=== PATIENT | male | born 1945 | race Caucasian/White ===

== ENCOUNTER 2019-10-25 19:51 | Inpatient (IN) ==
[2019-10-25] MEDS ORDERED: Ondansetron 4 MG/2 ML VIAL IVP ONE (20:10)
[2019-10-25] MEDS ORDERED: *HR* HYDROmorphone (PF) 1 MG/ML SYRINGE IVP ONE (20:10)
[2019-10-25 21:10] LABS: Basophils # 0.1 K/mcL (0.0-0.2); Basophils % 0.5 %; Eosinophils # 0.2 K/mcL (0.0-0.6); Eosinophils % 2.3 %; Hematocrit 31.5 % (37.5-50.1); Hemoglobin 10.7 g/dL (12.9-16.9); Immature Granulocytes % 0.5 % (0-4); Lymphocytes # 0.8 K/mcL (0.6-4.6); Lymphocytes % 8.1 %; Mean Corpuscular Hemoglobin 31.1 pg (28.0-33.3); Mean Corpuscular Volume 91.6 fL (83.0-100.0); Mean Platelet Volume 10.9 fL (9.4-12.4); Monocytes # 0.5 K/mcL (0.0-1.3); Monocytes % 5.2 %; Neutrophils # 8.2 K/mcL (1.6-8.9); Platelet Count 173 K/mcL (140-400); Red Blood Count 3.44 M/mcL (4.19-5.50); Red Cell Distribution Width 13.5 % (11.5-14.5); Segmented Neutrophils % 83.4 %; White Blood Count 9.8 K/mcL (4.3-11.1)
[2019-10-25 21:15] LABS: INR 1.1; Prothrombin Time 12.2 Seconds (9.4-12.1)
[2019-10-25 21:22] LABS: Calcium 8.6 mg/dL (8.6-10.3); Potassium 4.3 mEq/L (3.5-5.1)
[2019-10-25] MEDS ORDERED: Naloxone 0.4 MG/ML INJ IVP PRN (23:40)
[2019-10-25] MEDS ORDERED: *HR* Dextrose 50 % in Water (Syg) 50 ML SYRINGE IVP PRN (23:48)
[2019-10-25] MEDS ORDERED: Dextrose Gel 15 GM/37.5 ML TUBE PO PRN ×2 (23:48)
[2019-10-25] MEDS ORDERED: D5% in Water 1,000 ML IVC PRN (23:48)
[2019-10-26] MEDS: Insulin LISPRO 300 UNITS/3 ML VIAL SQ SCH ×4 (00:45→17:06)
[2019-10-26 01:33] LABS: Hematocrit 30.3 % (37.5-50.1); Hemoglobin 10.2 g/dL (12.9-16.9); Mean Corpuscular HGB Conc 33.7 g/dL (31.6-35.5); Mean Corpuscular Hemoglobin 30.4 pg (28.0-33.3); Mean Corpuscular Volume 90.4 fL (83.0-100.0); Mean Platelet Volume 11.1 fL (9.4-12.4); Platelet Count 170 K/mcL (140-400); Red Blood Count 3.35 M/mcL (4.19-5.50); Red Cell Distribution Width 13.5 % (11.5-14.5); White Blood Count 8.4 K/mcL (4.3-11.1)
[2019-10-26 01:38] LABS: Calcium 8.5 mg/dL (8.6-10.3); Potassium 4.2 mEq/L (3.5-5.1)
[2019-10-26] MEDS ORDERED: *HR* HYDROmorphone (PF) 1 MG/ML SYRINGE IVP ONE (02:41)
[2019-10-26] MEDS: hydroCHLOROthiazide 25 MG TABLET PO SCH (04:53)
[2019-10-26] MEDS: *HR* Labetalol 20 MG/4 ML SYRINGE IVP PRN ×2 (04:54→06:10)
[2019-10-26] MEDS: Levothyroxine 25 MCG TABLET PO SCH (05:32)
[2019-10-26] MEDS ORDERED: *HR* Heparin 5,000 UNIT/ML VIAL SQ SCH (06:00)
[2019-10-26] MEDS ORDERED: Aspirin Enteric Coated 81 MG Tablet PO ONE ×2 (06:35→07:15)
[2019-10-26] MEDS ORDERED: *HR* Heparin 5,000 UNIT/ML VIAL IVP PRN (06:35)
[2019-10-26] MEDS ORDERED: Heparin 25,000 UNIT/250 ML D5W 25,000 UNIT/250 ML IV.SOLN IVC SCH (06:45)
[2019-10-26 07:11] LABS: Bilirubin,Urine Negative (Negative); Blood,Urine Small (Negative); Clarity,Urine Clear (Clear); Color,Urine Yellow (Yellow); Glucose,Urine (UA) 100 mg/dL (Normal); Ketones,Urine Negative (Negative); Leukocyte Esterase,Urine Negative (Negative); Nitrite,Urine Negative (Negative); PH,Urine 5.5 pH Units (5.0-8.0); Protein,Urine >=300 mg/dL (Neg-Trace); Specific Gravity,Urine 1.025 (1.010-1.025); Urobilinogen,Urine Normal (Normal)
[2019-10-26 07:13] LABS: Bacteria,Urine None Seen per hpf (None-Few); Hyaline Casts,Urine None Seen per lpf (None-Few); Squamous Epithelial Cell,Urine Many per lpf (None-Few); WBC,Urine 0-3 per hpf (0-3)
[2019-10-26] MEDS ORDERED: *HR* Labetalol 20 MG/4 ML SYRINGE IVP PRN ×2 (07:21→08:06)
[2019-10-26 08:12] LABS: INR 1.1; Prothrombin Time 12.9 Seconds (9.4-12.1)
[2019-10-26 08:28] LABS: Troponin I 0.04 ng/mL (< 0.04)
[2019-10-26 08:32] LABS: Hemoglobin 9.7 g/dL (12.9-16.9); Mean Corpuscular HGB Conc 33.4 g/dL (31.6-35.5); Mean Corpuscular Hemoglobin 30.6 pg (28.0-33.3); Mean Corpuscular Volume 91.5 fL (83.0-100.0); Mean Platelet Volume 10.8 fL (9.4-12.4); Platelet Count 157 K/mcL (140-400); Red Blood Count 3.17 M/mcL (4.19-5.50); Red Cell Distribution Width 13.6 % (11.5-14.5); White Blood Count 6.7 K/mcL (4.3-11.1)
[2019-10-26] MEDS ORDERED: hydroCHLOROthiazide 25 MG TABLET PO SCH (09:00)
[2019-10-26] MEDS ORDERED: amLODIPine 5 MG TABLET PO SCH (09:00)
[2019-10-26] MEDS: hydrALAZINE 25 MG TABLET PO SCH ×3 (11:35→20:19)
[2019-10-26] MEDS: *HR* Heparin 5,000 UNIT/ML VIAL IVP PRN (17:14)
[2019-10-27 00:39] LABS: Basophils % 0.4 %; Eosinophils % 0.3 %; Hematocrit 29.2 % (37.5-50.1); Hemoglobin 9.3 g/dL (12.9-16.9); Immature Granulocytes % 0.3 % (0-4); Lymphocytes # 0.6 K/mcL (0.6-4.6); Lymphocytes % 8.6 %; Mean Corpuscular HGB Conc 31.8 g/dL (31.6-35.5); Mean Corpuscular Hemoglobin 30.6 pg (28.0-33.3); Mean Corpuscular Volume 96.1 fL (83.0-100.0); Mean Platelet Volume 10.7 fL (9.4-12.4); Monocytes # 0.5 K/mcL (0.0-1.3); Neutrophils # 6.3 K/mcL (1.6-8.9); Platelet Count 130 K/mcL (140-400); Red Blood Count 3.04 M/mcL (4.19-5.50); Red Cell Distribution Width 13.7 % (11.5-14.5); Segmented Neutrophils % 84.4 %; White Blood Count 7.5 K/mcL (4.3-11.1)
[2019-10-27 00:58] LABS: Calcium 8.4 mg/dL (8.6-10.3); Potassium 4.7 mEq/L (3.5-5.1)
[2019-10-27] MEDS: *HR* Heparin 5,000 UNIT/ML VIAL IVP PRN (01:02)
[2019-10-27] MEDS: Levothyroxine 25 MCG TABLET PO SCH (05:10)
[2019-10-27] MEDS ORDERED: Ondansetron 4 MG/2 ML VIAL ONE (07:24)
[2019-10-27] MEDS ORDERED: Lidocaine -MPF 2% 2 ML VIAL ONE (07:24)
[2019-10-27] MEDS ORDERED: Dexamethasone 4 MG/ML VIAL ONE (07:24)
[2019-10-27] MEDS ORDERED: *HR* Propofol 200 MG/20 ML VIAL IVP ONE (07:24)
[2019-10-27] MEDS ORDERED: *HR* FentaNYL (PF) 100 MCG/2 ML VIAL ONE ×2 (07:24→08:37)
[2019-10-27] MEDS ORDERED: Ethanol\\Acetic Acid\\Na Ace\\Ben 1,000 ML IRRIG.SOLN IR ONE (08:26)
[2019-10-27] MEDS ORDERED: Heparin 1,000 UNITS/500 mL 500 ML ONE (08:30)
[2019-10-27] MEDS ORDERED: *HR* Rocuronium Bromide 50 MG/5 ML VIAL ONE (08:40)
[2019-10-27] MEDS ORDERED: NiCARdipine 2.5 MG/10 ML Syringe IVPB ONE (08:46)
[2019-10-27] MEDS ORDERED: Acetaminophen IV 1,000 MG/100 ML INFUS..BTL ONE (08:46)
[2019-10-27] MEDS ORDERED: Albumin Human 5% 25.0 GM/500 ML VIAL ONE (09:26)
[2019-10-27] MEDS ORDERED: EPHEDrine 50 MG/ML VIAL ONE (09:36)
[2019-10-27] MEDS ORDERED: *HR* Succinylcholine 200 MG/10 ML VIAL IVP ONE (10:36)
[2019-10-27] MEDS ORDERED: MOM Conc 10 ML UD.LIQ PO PRN (10:57)
[2019-10-27] MEDS ORDERED: Sennosides 8.6 MG TABLET PO PRN (10:57)
[2019-10-27] MEDS ORDERED: Temazepam 15 MG CAPSULE PO PRN (10:57)
[2019-10-27] MEDS ORDERED: Multivit/Ca/Min/Fe/FA 1 TAB TABLET PO SCH (11:15)
[2019-10-27 11:42] LABS: Hematocrit 23.9 % (37.5-50.1); Hemoglobin 7.9 g/dL (12.9-16.9)
[2019-10-27] MEDS: Insulin LISPRO 300 UNITS/3 ML VIAL SQ SCH ×4 (12:23→20:19)
[2019-10-27] MEDS: Aspirin Enteric Coated 81 MG Tablet PO SCH (13:09)
[2019-10-27] MEDS: hydroCHLOROthiazide 25 MG TABLET PO SCH (13:15)
[2019-10-27] MEDS: amLODIPine 5 MG TABLET PO SCH (13:15)
[2019-10-27] MEDS: hydrALAZINE 25 MG TABLET PO SCH ×3 (13:15→19:39)
[2019-10-27] MEDS ORDERED: 0.9 % Sodium Chloride 250 ML ONE (15:52)
[2019-10-27] MEDS ORDERED: Ascorbic Acid 500 MG TABLET PO SCH (17:00)
[2019-10-27] MEDS: *HR* Heparin 5,000 UNIT/ML VIAL SQ SCH (17:09)
[2019-10-27] MEDS: Ringers Solution, Lactated 1,000 ML IVC SCH (19:39)
[2019-10-28 04:44] LABS: Basophils % 0.1 %; Hematocrit 25.9 % (37.5-50.1); Hemoglobin 8.4 g/dL (12.9-16.9); Immature Granulocytes % 0.2 % (0-4); Lymphocytes # 0.8 K/mcL (0.6-4.6); Lymphocytes % 9.4 %; Mean Corpuscular HGB Conc 32.4 g/dL (31.6-35.5); Mean Corpuscular Hemoglobin 30.9 pg (28.0-33.3); Mean Corpuscular Volume 95.2 fL (83.0-100.0); Mean Platelet Volume 11.1 fL (9.4-12.4); Monocytes # 0.8 K/mcL (0.0-1.3); Monocytes % 9.1 %; Neutrophils # 6.9 K/mcL (1.6-8.9); Platelet Count 128 K/mcL (140-400); Red Blood Count 2.72 M/mcL (4.19-5.50); Segmented Neutrophils % 81.2 %; White Blood Count 8.5 K/mcL (4.3-11.1)
[2019-10-28 05:24] LABS: Calcium 8.4 mg/dL (8.6-10.3); Potassium 4.4 mEq/L (3.5-5.1)
[2019-10-28] MEDS: Levothyroxine 25 MCG TABLET PO SCH (05:57)
[2019-10-28] MEDS: *HR* Heparin 5,000 UNIT/ML VIAL SQ SCH ×2 (05:57→18:04)
[2019-10-28] MEDS: Aspirin Enteric Coated 81 MG Tablet PO SCH (08:30)
[2019-10-28] MEDS: hydrALAZINE 25 MG TABLET PO SCH ×3 (08:30→21:20)
[2019-10-28] MEDS: amLODIPine 5 MG TABLET PO SCH (08:31)
[2019-10-28] MEDS: 0.9 % Sodium Chloride 1,000 ML IVC SCH ×2 (08:31→22:48)
[2019-10-28] MEDS: Insulin LISPRO 300 UNITS/3 ML VIAL SQ SCH ×4 (09:23→21:20)
[2019-10-28] MEDS: Ringers Solution, Lactated 1,000 ML IVC SCH (19:09)
[2019-10-28] MEDS ORDERED: Prochlorperazine 10 MG/2 ML VIAL IVP PRN (21:05)
[2019-10-28] MEDS ORDERED: *HR* Metoprolol 5 MG/5 ML VIAL IVP ONE (21:17)
[2019-10-28] MEDS ORDERED: *HR* HYDROmorphone (PF) 1 MG/ML SYRINGE IVP ONE (21:22)
[2019-10-28] MEDS ORDERED: 0.9 % Sodium Chloride 1,000 ML IVC SCH (21:57)
[2019-10-28] MEDS ORDERED: Ipratropium/Albuterol Neb 3 ML IH ONE (23:40)
[2019-10-28] MEDS ORDERED: Ipratropium/Albuterol Neb 3 ML ONE (23:41)
[2019-10-28 23:56] LABS: VBG HCO3 21 mEq/L (21-27); VBG PCO2 74 mmHg (41-51); VBG PH 7.06 pH Units (7.32-7.42); VBG PO2 75 mmHg (25-50)
[2019-10-29 00:10] LABS: Albumin 2.9 g/dL (3.5-5.7); Albumin/Globulin Ratio 1.4 (1.1-2.2); Bilirubin,Total 0.6 mg/dL (0.3-1.0); Calcium 8.2 mg/dL (8.6-10.3); Globulin 2.1 g/dL (2.4-3.5); Magnesium 2.7 mg/dL (1.6-2.6); Potassium 5.1 mEq/L (3.5-5.1)
[2019-10-29 00:18] LABS: Troponin I 15.31 ng/mL (< 0.04)
[2019-10-29] MEDS: Piperacillin/Tazobactam 3.375 GM in 0.9 % Sodium Chloride Mini Bag 100 ML IVPB SCH ×3 (00:38→16:37)
[2019-10-29 00:42] LABS: ABG Base Excess 0 mEq/L (-2 to 3); ABG HCO3 25 mEq/L (21-27); ABG Oxygen Saturation 86 % (95-98); ABG PCO2 44 mmHg (35-45); ABG PH 7.36 pH Units (7.32-7.45); ABG PO2 53 mmHg (85-104); ABG TCO2 27 mEq/L (20-26)
[2019-10-29] MEDS ORDERED: *HR* Heparin 5,000 UNIT/ML VIAL IVP ONE (01:00)
[2019-10-29] MEDS ORDERED: *HR* Heparin 5,000 UNIT/ML VIAL IVP PRN (01:00)
[2019-10-29 02:16] LABS: INR 1.2; Prothrombin Time 13.8 Seconds (9.4-12.1)
[2019-10-29 02:30] LABS: Hematocrit 27.6 % (37.5-50.1); Hemoglobin 8.9 g/dL (12.9-16.9); Mean Corpuscular HGB Conc 32.2 g/dL (31.6-35.5); Mean Corpuscular Hemoglobin 30.8 pg (28.0-33.3); Mean Corpuscular Volume 95.5 fL (83.0-100.0); Mean Platelet Volume 11.4 fL (9.4-12.4); Platelet Count 175 K/mcL (140-400); Red Blood Count 2.89 M/mcL (4.19-5.50); Red Cell Distribution Width 13.9 % (11.5-14.5); White Blood Count 4.5 K/mcL (4.3-11.1)
[2019-10-29 02:32] LABS: Basophils % 0.2 %; Hematocrit 28.1 % (37.5-50.1); Hemoglobin 9.2 g/dL (12.9-16.9); Lymphocytes # 0.4 K/mcL (0.6-4.6); Mean Corpuscular HGB Conc 32.7 g/dL (31.6-35.5); Mean Corpuscular Hemoglobin 30.5 pg (28.0-33.3); Mean Platelet Volume 11.3 fL (9.4-12.4); Monocytes # 0.3 K/mcL (0.0-1.3); Monocytes % 5.6 %; Platelet Count 183 K/mcL (140-400); Red Blood Count 3.02 M/mcL (4.19-5.50); Red Cell Distribution Width 14.1 % (11.5-14.5); Segmented Neutrophils % 86.2 %; White Blood Count 4.6 K/mcL (4.3-11.1)
[2019-10-29] MEDS: Heparin 25,000 UNIT/250 ML D5W 25,000 UNIT/250 ML IV.SOLN IVC SCH (02:32)
[2019-10-29 02:45] LABS: Calcium 8.1 mg/dL (8.6-10.3); Potassium 5.1 mEq/L (3.5-5.1)
[2019-10-29 04:00] LABS: Platelet Estimate Normal (Normal)
[2019-10-29] MEDS ORDERED: *HR* LORazepam 2 MG/ML VIAL IVP ONE ×2 (04:55→19:39)
[2019-10-29] MEDS: Levothyroxine 25 MCG TABLET PO SCH (05:33)
[2019-10-29] MEDS: Insulin LISPRO 300 UNITS/3 ML VIAL SQ SCH ×4 (07:43→20:25)
[2019-10-29] MEDS ORDERED: Furosemide 40 MG/4 ML VIAL IVP ONE (08:46)
[2019-10-29] MEDS: Aspirin Enteric Coated 81 MG Tablet PO SCH (08:57)
[2019-10-29 10:21] LABS: Alanine Aminotransferase 12 Units/L (7-52); Albumin 2.9 g/dL (3.5-5.7); Albumin/Globulin Ratio 1.4 (1.1-2.2); Alkaline Phosphatase 48 Units/L (34-104); Aspartate Amino Transferase 160 Units/L (13-39); Bilirubin,Direct 0.3 mg/dL (0.0-0.2); Bilirubin,Indirect 0.5 mg/dL (0.0-1.0); Bilirubin,Total 0.8 mg/dL (0.3-1.0); Globulin 2.1 g/dL (2.4-3.5); Troponin I > 73.00 ng/mL (< 0.04)
[2019-10-29] MEDS ORDERED: Furosemide 40 MG in 0.9 % Sodium Chloride 50 ML IV ONE (12:03)
[2019-10-29 15:38] LABS: Lactate Dehydrogenase 621 Units/L (140-271); Uric Acid 9.5 mg/dL (2.3-7.6)
[2019-10-29 15:59] LABS: Hepatitis B Surface Antigen Nonreactive (Nonreactive)
[2019-10-29 16:01] LABS: Troponin I > 73.00 ng/mL (< 0.04)
[2019-10-29 16:28] LABS: Hepatitis B Core IgM Nonreactive (Nonreactive); Hepatitis C Virus Antibody Nonreactive (Nonreactive)
[2019-10-29] MEDS: *HR* Metoprolol 5 MG/5 ML VIAL IVP SCH (16:37)
[2019-10-29 16:46] LABS: Amylase,Pleural Fluid 21 Units/L (No Ref Range); Glucose,Pleural Fluid 223 mg/dL (No Ref Range); LDH,Pleural Fluid 97 Units/L (No Ref Range); Total Protein,Pleural Fluid < 3.0 g/dL
[2019-10-29 16:59] LABS: Hepatitis A Antibody IgM Nonreactive (Nonreactive)
[2019-10-29 17:13] LABS: RBC,Pleural Fluid < 0.002 M/mcL
[2019-10-29 18:16] LABS: Appearance of Pleural Fl Clear (Clear)
[2019-10-29 18:19] LABS: Basophils,Pleural Fluid 0 %; Eosinophils,Pleural Fluid 0 %
[2019-10-29] MEDS: *HR* Heparin 5,000 UNIT/ML VIAL IVP PRN (21:08)
[2019-10-30] MEDS: *HR* Metoprolol 5 MG/5 ML VIAL IVP SCH ×4 (00:20→16:55)
[2019-10-30] MEDS: Piperacillin/Tazobactam 3.375 GM in 0.9 % Sodium Chloride Mini Bag 100 ML IVPB SCH ×2 (00:20→08:51)
[2019-10-30 05:48] LABS: INR 1.3; Prothrombin Time 15.1 Seconds (9.4-12.1)
[2019-10-30 05:50] LABS: Hematocrit 24.1 % (37.5-50.1); Immature Granulocytes % 0.3 % (0-4); Lymphocytes # 0.8 K/mcL (0.6-4.6); Lymphocytes % 11.9 %; Mean Corpuscular HGB Conc 31.5 g/dL (31.6-35.5); Mean Corpuscular Hemoglobin 30.4 pg (28.0-33.3); Mean Corpuscular Volume 96.4 fL (83.0-100.0); Mean Platelet Volume 11.4 fL (9.4-12.4); Monocytes # 0.4 K/mcL (0.0-1.3); Monocytes % 5.9 %; Neutrophils # 5.4 K/mcL (1.6-8.9); Platelet Count 122 K/mcL (140-400); Segmented Neutrophils % 81.9 %; White Blood Count 6.6 K/mcL (4.3-11.1)
[2019-10-30 05:59] LABS: Hemoglobin 7.6 g/dL (12.9-16.9)
[2019-10-30] MEDS: *HR* Heparin 5,000 UNIT/ML VIAL IVP PRN (05:59)
[2019-10-30 06:01] LABS: Calcium 7.9 mg/dL (8.6-10.3); Magnesium 2.7 mg/dL (1.6-2.6); Potassium 4.7 mEq/L (3.5-5.1)
[2019-10-30] MEDS: Aspirin Enteric Coated 81 MG Tablet PO SCH (08:46)
[2019-10-30] MEDS: Insulin LISPRO 300 UNITS/3 ML VIAL SQ SCH ×2 (08:47→12:28)
[2019-10-30] MEDS: Furosemide 40 MG/4 ML VIAL IVP SCH ×2 (08:51→17:47)
[2019-10-30] MEDS: Heparin 25,000 UNIT/250 ML D5W 25,000 UNIT/250 ML IV.SOLN IVC SCH (10:22)
[2019-10-30 11:05] LABS: Protein/Creatinine Ratio,Urine 0.67 mg/mg (0.00-0.20); Sodium, Urine 58.4 mEq/L
[2019-10-30 11:21] LABS: Bacteria,Urine Moderate per hpf (None-Few); RBC,Urine 0-3 per hpf (0-3); WBC,Urine 0-3 per hpf (0-3)
[2019-10-30] MEDS ORDERED: Acetaminophen 650 MG RECTAL SUPP RC PRN (12:46)
[2019-10-30] MEDS ORDERED: *HR* FentaNYL PATCH 12 MCG PATCH TD SCH (13:00)
[2019-10-30] MEDS ORDERED: Doxycycline 100 MG in 0.9 % Sodium Chloride Mini Bag 100 ML IVPB SCH (18:00)
[2019-10-30] MEDS: *HR* LORazepam 2 MG/ML VIAL IVP PRN ×2 (18:02→21:22)
[2019-10-30] MEDS ORDERED: Atropine Sulfate 1% 40 DROP/2 ML BOTTLE SL PRN (22:49)
[2019-10-30] MEDS ORDERED: Scopolamine Patch 1.5 MG PATCH.TD72 TD SCH (23:00)
[2019-10-31] MEDS: *HR* Metoprolol 5 MG/5 ML VIAL IVP SCH ×4 (00:10→18:05)
[2019-10-31] MEDS: *HR* LORazepam 2 MG/ML VIAL IVP PRN ×2 (00:48→05:55)
[2019-10-31] MEDS: Aspirin Enteric Coated 81 MG Tablet PO SCH (09:15)
[2019-10-31 19:06] VITALS: BP 90/51
== END 2019-10-31 19:50 | disposition expired | DRG 469 ==
LOC: EMEROOARM 19:51 → 3NENU 19:51 → SUATTDRO 10-26 04:34 → 2NNU 10-29 02:20 → 2ANU 10-30 14:39
PROVIDERS: ADMIT Internal Medicine; ATTEND Internal Medicine